=== PATIENT | female | born 1985 | race African-American/Black ===

== ENCOUNTER 2018-10-22 16:37 | Emergency (ER) | payer OTHER ==
[~2018-10-22] VITALS: Ht 157.5 cm; Wt 62.7 kg
[~2018-10-22 16:37] MED LIST: ACET50TA PO; IBUP80TA PO; PRENTAB8 PO
[2018-10-22] MEDS ORDERED: LIDOCAINE VISCOUS 2% SOLN 15ML UDC SS ONE (17:00)
[2018-10-22] MEDS ORDERED: ONDANSETRON 4 MG ORAL DISINTEGRATING TAB (Q0162 PER 1MG) PO ONE (17:00)
[2018-10-22 17:46] LABS: INFLUENZA A AMPLIFICATION POSITIVE (NEGATIVE); INFLUENZA B AMPLIFICATION NEGATIVE (NEGATIVE)
[2018-10-22] MEDS ORDERED: OSEL75CA PO (17:56)
[2018-10-22] MEDS ORDERED: LIDO1SOL7 PO (17:56)
[2018-10-22] MEDS ORDERED: ONDA4TAB6 PO (17:56)
[2018-10-22 17:58] VITALS: BP 108/56
[2018-10-22] MEDS ORDERED: OSELTAMIVIR PHOSPHATE 75 MG CAP (TAMIFLU) PO ONE (18:00)
== END 2018-10-22 18:04 | disposition home or self-care (01) ==
LOC: M ED 16:37
DX: J09.X2 Influenza due to identified novel influenza A virus with other respiratory manifestations (principal); G43.909 Migraine, unspecified, not intractable, without status migrainosus; Z91.89 Other specified personal risk factors, not elsewhere classified; Z91.013 Allergy to seafood
CPT/HCPCS: 87502; 99283; Q0162